=== PATIENT | female | born 1950 | race Caucasian/White ===

== ENCOUNTER 2016-11-26 19:44 | Inpatient (IN) | payer MEDICARE ==
--- NOTE | ~2016-11-26 | HP ---
Unit #: [id number] #: [id number] Patient: VALENTIN KASPER [id number] [address] [place], [place] [address] [id number] I MR#: [id number] NAME: VALENTIN KASPER. ROOM: 05136 Age: 66 Sex: F Admission Date: 11/26/2016 : 1950 Attending Physician: Yulia Perry M.D. Referring Physician: Flip Patel M.D. Primary Care Physician: Flip Patel M.D. HISTORY AND PHYSICAL CHIEF COMPLAINT Qrkxm-kl-dopzimd respiratory failure. HISTORY OF PRESENT ILLNESS This 66-year-old female with O2-dependent COPD, remote PE, hypertension, rheumatoid arthritis and treated histoplasmosis, is admitted for respiratory failure. The patient was recently admitted to [facility] in September for influenza. She was in her usual state of health until two days ago when she felt feverish with chills, cough productive of some yellow sputum, some wheezing and increasing shortness of breath today. She presented to this emergency department where her O2 saturation was 90% on her usual 6 liters of oxygen. She, therefore, was placed on BiPAP with improved and given 125 mg of Solu-Medrol for wheezing noted by the ER physician. Chest x-ray performed shows bilateral patchy opacities likely diffuse lung disease but difficult to exclude an acute component. At this time, patient is breathing easier on BiPAP. PAST MEDICAL HISTORY 1. COPD on 6 liters of oxygen. 2. Histoplasmosis treated in the past with a right upper lobe nodule. 3. GERD. 4. DJD. 5. Remote PE in 1998 following a left hip replacement. 6. Rheumatoid arthritis which caused a pericardial effusion requiring pericardial window. 7. Hyperlipidemia. 8. Hypertension. 9. Negative stress test in the past. 10. Recent admission to [facility] for influenza. 11. Possible history of congestive heart failure. 12. Right shoulder surgery. 13. SARIKA and BSO. ALLERGIES No known drug allergies. HOME MEDICATIONS 1. Mucomyst b.i.d. in nebulizer. 2. Ventolin inhaler p.r.n. 3. DuoNeb q.i.d. 4. Fosamax 70 mg each week. 5. Lipitor 40 mg daily. Unit #: [id number] #: [id number] Patient: VALENTIN KASPER 6. Symbicort 80/4.5 two puffs b.i.d. 7. Os-Mani 600 mg b.i.d. 8. Lasix 40 mg b.i.d. 9. Plaquenil 200 mg daily. 10. Arava 20 mg daily. 11. Metoprolol 25 mg b.i.d. 12. [place]-3 1000 mg daily. 13. Protonix 40 mg daily. 14. Potassium 10 mEq b.i.d. 15. Azulfidine 500 mg h.s. 16. Trazodone 50 mg h.s. SOCIAL HISTORY The patient lives alone. She stopped smoking several years ago. Does not drink alcohol. FAMILY HISTORY CAD and valvular heart disease. REVIEW OF SYSTEMS Somewhat difficult to obtain as a BiPAP is in place. PHYSICAL EXAMINATION VITAL SIGNS: Temperature 98.5, pulse 122, respirations 23, blood pressure 136/76, O2 saturation 90% on 6 liters of oxygen but currently is 97% on FiO2 of 50%. GENERAL: Obese, 66-year-old female currently in no acute distress on BiPAP. HEENT: Eyes PERRLA. Extraocular muscles are intact. Pharynx benign. NECK: Supple without adenopathy or thyromegaly. CHEST: Diminished breath sounds bilaterally. HEART: Slightly tachy S1, S2 without murmur. ABDOMEN: Bowel sounds are present. No hepatosplenomegaly, tenderness or masses. EXTREMITIES: With mild edema, left more so than the right. NEUROLOGIC: Awake, alert, oriented. Cranial nerves are intact. Equal strength throughout. DIAGNOSTIC STUDIES LABORATORY: Hematocrit 39, normal white count and platelet count. SMA-12 glucose 115, potassium 2.9. BNP 112. Lactic acid normal. ABG pH 7.44, pCO2 34, pO2 190 on BiPAP, 12/6, back rate 18, FiO2 60%. Urinalysis 1+ protein, 2+ bacteria but no significant wbc's or rbc's. IMAGING: Chest x-ray with old granulomatous disease, bilateral patchy opacities, likely diffuse lung disease with no definite acute disease but difficult to exclude acute disease as well. CARDIOVASCULAR: EKG sinus tachycardia rate 120. ASSESSMENT 1. Dmemu-ba-wlrgrjv hypoxic respiratory failure. Patient does have underlying COPD along with rheumatoid arthritis. She may have a bronchitis, did present with wheezes and a cough. 2. Hypokalemia. 3. Chronic obstructive pulmonary disease on 6 liters of oxygen. 4. History of treated histoplasmosis. 5. Remote pulmonary embolism following surgery in 1998. Unit #: [id number] #: [id number] Patient: VALENTIN KASPER 6. Hyperlipidemia. 7. Essential hypertension. 8. Rheumatoid arthritis. 9. Status post pericardial window. 10. Recent hospitalization at [facility] for influenza. PLAN 1. Steroids, bronchodilators, antibiotics. 2. CTA of the chest. 3. Recent records. 4. Replace potassium and check magnesium. 5. DVT prophylaxis. 6. Pulmonary consultation. Patient is followed by Dr. Mart. 7. Florastor. Dictated by Yulia Perry M.D. AML/cs TD: 11/26/2016 23:26 JOB #: [id number] HISTORY AND PHYSICAL Page 1 of 1 X Yulia Perry MD X HISTORY AND PHYSICAL
--- NOTE | ~2016-11-26 | CR72 ---
[facility] A Service of [facility] & [facility] RADIOLOGY TEXT RESULTS PATIENT: VALENTIN KASPER LOCATION: [address] : [birth year] UNIT #: [id number] AGE: [address]: Keke Mercedes MD SEX: F ORDER DR: [id number] [facility] [address] [facility]. [place], [place] [address] [id number] I MR#: [id number] Acc #: [id number] NAME: VALENTIN KASPER : 1950 SEX: F STUDY DATE/TIME: 12/02/2016 6:04 UNIT: [facility] ROOM: [facility] STUDY DESCRIPTION: CR Chest Single View Portable Attending Physician: Keke Mercedes M.D. Referring Physician: Flip Patel M.D. Ordering Physician: Dimitrios Underwood M.D. Primary Care Physician: Flip Patel M.D. MEDICAL IMAGING REPORT This report is preliminary unless electronic signature is present EXAM Portable chest 1-view, 12/02/2016 COMPARISON 12/01/2016 HISTORY Respiratory failure, pneumonia. Symptoms for 6 days. FINDINGS Further improvement in the right lung with diminishing interstitial infiltrate. There is however increased interstitial prominence in the left mid and lower lung with left side volume loss when compared to 12/01. There is no pneumothorax. ET remains in place, tip 4.0-5.0 cm above the mac. Right arm PICC line and Dobbhoff type feeding tube remain in place as well. Dictated by... Kishan Banuelos M.D. THIS IS AN ELECTRONICALLY VERIFIED REPORT Kishan Banuelos M.D. at 12/02/2016 3:51 PM HAL/merlene TD: 12/02/2016 09:03 JOB #: [id number] MEDICAL IMAGING REPORT Page 1 of 1 COPY
--- NOTE | ~2016-11-26 | FU ---
[facility] Nutrition Therapy DATE: 12/05/16 Patient: VALENTIN KASPER Physician: ARCENIO Address: [address] [facility] Room/Bed: [address], Zip: [place] [address] Admit Date: 11/26/16 Date of : [birth year] Height: 5 3 Weight: 186 84.5 NUTRITION MONITORING/FOLLOW-UP: Reason: PT SEEN FOR FOLLOW-UP/ENTERAL NUTRITION SUPPORT DX: ACUTE ON CHRONIC RESP FAILURE, PNA, FEVER Anthropometrics: 5'3", WT: 186# (85 KG), BMI: 32.9 -ADMIT WEIGHT: 200# Labs: GLU: 158, BUN: 29, CREAT: 0.4 Meds: NACL, PROTONIX, NOVOLOG, LIPITOR, OS-ANTONI 500+D, FUROSEMIDE, FISH OIL, LAXATIVE, ZOFRAN, SOLU-MEDROL I&O's: 3162/2700 Skin: BILATERAL HANDS 1+ EDEMA; BILATERAL FEET 1+ EDEMA Estimated Nutrition Needs: 7876-8574 KCAL 90-109 G PRO Assessment: CHART REVIEWED AND EVENTS NOTED. PT SEEN FOR FOLLOW-UP. PT EXTUBATED REPORTS APPETITE SLOWLY IMPROVING. FAMILY REPORTS PT CONSUMES ~50% OF MEALS, NO C/O N/V BUT NOTES SOME DIARRHEA. OF NOTE, TECHNICAL SALES ASSOCIATE FOLLOWING AND DEEMS PT APPROPRIATE FOR DIET ADVANCEMENT TO MECHANICAL SOFT + NDD2 + NECTAR THICK LIQUIDS. PT ALSO RECEIVING EN OF JEVITY 1.5 @ 55 ML/HR. PER RN AND CHART, PT TOLERATING EN, NOTING NO ISSUES. PER PUMP HISTORY, PT RECEIVING ~94% ESTIMATED NUTRIENT NEEDS PAST [address] ENCOURAGED SLOW GRADUAL PO INTAKE + SUPPLEMENT INTAKE, PT AGREED TO ENSURE PUDDING ONCE DAILY W/LUNCH. RD WILL ORDER. PT AND FAMILY REPORTED NO DIET QUESTIONS AT THIS TIME. RD TO CONTINUE TO FOLLOW. Dx: INADEQUATE ORAL INTAKE R/T DX, CURRENT CLINICAL CONDITION AEB PT INTUBATED AND SEDATED, ENTERAL NUTRITION IN PLACE.-RESOLOVED NEW DX: DECREASED NUTRIENT INTAKE R/T DECREASED APPETITE AEB PT REPORT ABOVE, TECHNICAL SALES ASSOCIATE FOLLOWING. Intervention: 1. DIET PER TECHNICAL SALES ASSOCIATE (MECHANICAL SOFT + NDD2 + NECTAR THICK LIQUID) 2. ENTERAL NUTRITION SUPPORT 3. ENSURE PUDDING ONCE DAILY Monitoring, Evaluation and Goals: GOALS MET 1. ENTERAL NUTRITION; PROVIDE ~80-100% ESTIMATED NUTRIENT NEEDS 2. ORAL INTAKE; ADVANCE DIET AND CONSUME >50% OF MEALS W/NO C/O N/V/D 3. LABS; WNL [facility] Nutrition Therapy DATE: 12/05/16 Patient: VALENTIN KASPER Physician: ARCENIO Address: [address] [place] [address] Room/Bed: [address], Zip: [place] [address] Admit Date: 11/26/16 Date of : [birth year] Height: 5 3 Weight: 186 84.5 4. GI; PROMOTE REGULAR GI FUNCTION MONITOR: -PO INTAKE/APPETITE -TF RATE/RESIDUALS/WEAN? -LABS Recommendations: 1. ORDER ASHLI ENSURE PUDDING BID W/MEALS 2. CONTINUE TO ENCOURAGE SLOW GRADUAL PO INTAKE 3. CONTINUE ENTERAL NUTRITION SUPPORT OF JEVITY 1.5 @ 55 ML/HR + SUGAR-FREE PROSTAT ONCE DAILY, IF PO INTAKE <50% -PROVIDES 2080 KCAL, 99 G PRO, 1003 ML FREE H20 RECOMMEND TO D/C ENTERAL NUTRITION IF PT CONSUMES >50% OF MEALS RD WILL F/U PER PROTOCOL PT IS MODERATELY COMPROMISED Respectfully, SAMIR FERREIRA MS, RD, LD Food and Nutritional Services [facility] cc: client file
--- NOTE | ~2016-11-26 | CT16 ---
[facility] A Service of [facility] & [facility] RADIOLOGY TEXT RESULTS PATIENT: VALENTIN KASPER LOCATION: [address] : [birth year] UNIT #: [id number] AGE: [address]: Keke Mercedes MD SEX: F ORDER DR: [id number] [facility] [address] [place], [place] [address] [id number] I MR#: [id number] Acc #: [id number] NAME: VALENTIN KASPER : 1950 SEX: F STUDY DATE/TIME: 11/27/2016 02:08 UNIT: [facility] ROOM: 26480 STUDY DESCRIPTION: CT Angio Chest for PE Attending Physician: Yulia Perry M.D. Referring Physician: Flip Patel M.D. Ordering Physician: uYlia Perry M.D. Primary Care Physician: Flip Patel M.D. MEDICAL IMAGING REPORT This report is preliminary unless electronic signature is present EXAM Chest CTA, 11/27/2016 at 0208 hours. INDICATION Acute on chronic respiratory failure. Shortness of air and chest pain today. History of COPD and uterine cancer. TECHNIQUE Axial images were obtained through the chest following IV contrast administration. Comparison made with 08/01/2015. This CT exam was performed with one or more of the following radiation dose reduction techniques: automatic exposure control, adjustment of mA and/or kV according to patient size, and iterative reconstruction. FINDINGS Bolus timing is poor. There is no evidence of central pulmonary embolism. The more peripheral pulmonary branches are poorly evaluated. There is no aortic dissection. There is no pleural or pericardial effusion. Scattered nonpathologically enlarged mediastinal nodes are stable from prior and presumed benign. Large calcified fibrotic mass in the right upper lobe is unchanged. There is severe pulmonary emphysema. There is new infiltrate in the right middle lobe compatible with pneumonia. There is some mild atelectasis in the left lower lobe. There is atherosclerotic disease and extensive coronary artery disease. Continuation through the upper abdomen is unremarkable. IMPRESSION 1. The exam is extremely limited due to poor bolus timing. No central pulmonary embolism is seen. The hdm-cx-dggnnm pulmonary arterial branches are poorly evaluated. 2. No aortic dissection. [facility]. [facility] A Service of [facility] & [facility] RADIOLOGY TEXT RESULTS PATIENT: VALENTIN KASPER LOCATION: [address] : [birth year] UNIT #: [id number] AGE: [address]: Keke Mercedes MD SEX: F ORDER DR: 3. Severe emphysema with scattered areas of fibrosis, particularly in the right upper lobe. These are all stable. 4. New right middle lobe infiltrate compatible with pneumonia. 5. Atherosclerotic disease and coronary artery disease. Dictated by... Richard Perdomo Jr., M.D. THIS IS AN ELECTRONICALLY VERIFIED REPORT Richard Perdomo Jr., M.D. at 11/27/2016 10:18 PM GONSALO/rudy TD: 11/27/2016 03:26 JOB #: [id number] MEDICAL IMAGING REPORT Page 1 of 1 COPY
--- NOTE | ~2016-11-26 | CR72 ---
[facility] A Service of [facility] & [facility] RADIOLOGY TEXT RESULTS PATIENT: VALENTIN KASPER LOCATION: [address] : [birth year] UNIT #: [id number] AGE: [address]: Keke Mercedes MD SEX: F ORDER DR: [id number] [facility] [address] [place], [place] [address] [id number] I MR#: [id number] Acc #: [id number] NAME: VALENTIN KASPER : 1950 SEX: F STUDY DATE/TIME: 12/03/2016 4:21 UNIT: [facility] ROOM: [facility] STUDY DESCRIPTION: CR Chest Single View Portable Attending Physician: Keke Mercedes M.D. Referring Physician: Flip Patel M.D. Ordering Physician: Dimitrios Underwood M.D. Primary Care Physician: Flip Patel M.D. MEDICAL IMAGING REPORT This report is preliminary unless electronic signature is present EXAM Portable chest 12/03/2016 INDICATION Respiratory failure. COMPARISON 12/02/2016. FINDINGS This portable view of the chest is unchanged from yesterday's study. There appears to be an irregular mass in the right upper lobe measuring about 3.5 cm in diameter. There is mild interstitial prominence within the lungs and the heart size is normal. The Dobbhoff tube is in good position. Based on the chest CT 11/27/2016, the mass appears to represent a calcified lesion. Dictated by... Yony Dowell M.D. THIS IS AN ELECTRONICALLY VERIFIED REPORT Yony Dowell M.D. at 12/03/2016 2:21 PM ADARSH/jenn TD: 12/03/2016 06:51 JOB #: [id number] MEDICAL IMAGING REPORT Page 1 of 1 COPY
--- NOTE | ~2016-11-26 | CR72 ---
[facility] A Service of [facility] & [facility] RADIOLOGY TEXT RESULTS PATIENT: VLAENTIN KASPER LOCATION: [address] : [birth year] UNIT #: [id number] AGE: [address]: Keke Mercedes MD SEX: F ORDER DR: [id number] [facility] [address] [facility] [place], [place] [address] [id number] I MR#: [id number] Acc #: [id number] NAME: VALENTIN KASPER. : 1950 SEX: F STUDY DATE/TIME: 11/27/2016 10:10 UNIT: [facility] ROOM: [facility] STUDY DESCRIPTION: CR Chest Single View Portable Attending Physician: Keke Mercedes M.D. Referring Physician: Flip Patel M.D. Ordering Physician: Felice Underwood, Phd Primary Care Physician: Flip Patel M.D. MEDICAL IMAGING REPORT This report is preliminary unless electronic signature is present EXAM Frontal chest 11/27/2016 INDICATIONS 66-year-old intubated patient. ET tube placement, cough, fever, short of air, hemoptysis symptoms began today. History of uterine malignancy. TECHNIQUE Frontal chest was performed. Correlation is made with CT 11/27/2016 and chest x-ray 11/26/2016 FINDINGS ET tube tip in good position above the mac. Enteric tube tip below the diaphragm but not in the field of view. Cardiac silhouette is stable. The lungs demonstrate advanced emphysematous change. There is consolidation in the midlung zone on the right better demonstrated on prior CT but most characteristic of pneumonia. Partially calcified mass in the upper lung zone on the right unchanged. No pneumothorax or new significant effusion. There is some atelectasis in the left lung base. There are increasing opacities in the lower lung zone on the right suspicious for developing or worsening pneumonia on the right. These appear new compared to the prior chest x-ray. IMPRESSION 1. Tubes and lines in satisfactory position to the extent visualized. No pneumothorax. 2. Middle lung zone pneumonia on the right better demonstrated on prior CT. New infiltrates in the lower lungs on the right suspicious for progression of pneumonia. New compared to prior chest x-ray performed yesterday. 3. No new effusion or evidence of pneumothorax. Calcified mass. Upper lungs on the right unchanged. 4. There is probable atelectasis in the left lung base. [facility]. [facility] A Service of [facility] RADIOLOGY TEXT RESULTS PATIENT: VALENTIN KASPER LOCATION: [place] [address] : [birth year] UNIT #: [id number] AGE: [address]: Keke Mercedes MD SEX: F ORDER DR: Dictated by... Kennedy Cheng M.D. THIS IS AN ELECTRONICALLY VERIFIED REPORT Kennedy Cheng M.D. at 11/27/2016 5:12 PM Sage TD: 11/27/2016 10:48 JOB #: [id number] MEDICAL IMAGING REPORT Page 1 of 1 COPY
--- NOTE | ~2016-11-26 | A ---
[facility] Nutrition Therapy DATE: 11/28/16 Patient: VALENTIN KASPER Physician: ARCENIO Address: [address] [facility] Room/Bed: [address], Zip: [place] [address] Admit Date: 11/26/16 Date of : [birth year] Height: 5 3 Weight: 185 84 NUTRITIONAL ASSESSMENT: REASON: ENTERAL NUTRITION SUPPORT ASSESSMENT, ALSO PT INTUBATED PT IS 66 Y.O. FEMALE ADMITTED FOR ACUTE ON CHRONIC RESP FAILURE, PNA, CP, FEVER PMH: SEVERE COPD, FIBROSIS, HTN, HLD, ARTHRITIS, ZOYA, REMOTE PE, ?CHF, HX OF UTERINE CANCER Anthropometrics: 5'3", WT: 200# (BEDSIDE) (91 KG), BMI: 35.4, 174%IBW -WEIGHTS HAVE RANGED 174-220# SINCE ADMIT Labs: GLU: 186, BUN: 8, ALB: 3.1, K+:3.3 Meds: PROPOFOL, FENTANYL, PROTONIX, LIPITOR, OS-ANTONI 500+D, VERSED, FUROSEMIDE, FISH OIL, NOVOLOG, SOLU-MEDROL, ZOFRAN, LAXATIVE, KCL I/O & Bowel function: 4419/1706 Skin Integrity: NO KNOWN SKIN ISSUES EDEMA: BILATERAL HANDS 1+ EDEMA; BILATERAL FEET 1+ EDEMA Estimated Nutrition Needs: 7173-5200 KCAL (18-22 KCAL/KG BW) 90-109 G PRO (1.0-1.2 G PRO/KG BW) FLUID CONSISTENT W/KCAL NEEDS OR MANAGE PER MD Assessment: CHART REVIEWED AND EVENTS NOTED. PT SEEN FOR ENTERAL NUTRITION IN PLACE. PT INTUBATED AND SEDATED W/PROPOFOL (RATE OF 28.4 ML/HR PROVIDING ~750 KCAL FROM LIPIDS) 2' DX, RECEIVING ALTERNATIVE NUTRITION SUPPORT OF JEVITY 1.5 @ 35 ML/HR (PLANS TO ADVANCE TO 45 ML/HR PER MD NOTES) VIA DHT. FAMILY IN ROOM REPORT PT NOTED TO HAVE DECREASED APPETITE AT HOME PAST FEW DAYS. FAMILY REPORTED NO DIET QUESTIONS AT THIS TIME. OF NOTE, PT WAS ADMITTED TO [facility] A FEW MONTHS AGO. RD TO FOLLOW. SEE RECOMMENDATIONS BELOW. Dx: INADEQUATE ORAL INTAKE R/T DX, CURRENT CONDITION AEB PT INTUBATED AND SEDATED, EN IN PLACE. Intervention: 1. ENTERAL NUTRITION Monitoring, Evaluation and Goals: 1. ENTERAL NUTRITION; PROVIDE ~80-100% ESTIMATED NUTRIENT NEEDS 2. ORAL INTAKE; ADVANCE DIET PER TRANSFER TABLE OPERATOR HELPER/TOLERATE W/NO C/O N/V/D (PO>50%) 3. LABS; WNL: K+, GLU [facility] Nutrition Therapy DATE: 11/28/16 Patient: VALENTIN KASPER Physician: ARCENIO Address: [address] [place] [address] Room/Bed: [address], Zip: [place] [address] Admit Date: 11/26/16 Date of : [birth year] Height: 5 3 Weight: 185 84 4. WEIGHTS; PROMOTE GRADUAL WEIGHT LOSS MONITOR: -TF RATE/RESIDUALS -WEIGHTS -SEDATION RATE -LABS Recommendations: 1. RECOMMEND TO REPLACE K+ PRIOR TO EN ADMINISTRATION. CHECK K+ AT NEXT LAB DRAW 2. IF PT REMAINS INTUBATED AND RECEIVING PROPOFOL, RECOMMEND TO ADD SUGAR-FREE PROSTAT TID TO CURRENT ENTERAL NUTRITION SUPPORT OF JEVITY 1.5 @ 35 ML/HR -TOTAL PROVIDES 2310 KCAL, 99 G PRO, 638 ML FREE H20 ADD FREE H20 FLUSHES PER MD 3. ONCE PROPOFOL D/C'D, RECOMMEND TO ADVANCE CURRENT ENTERAL NUTRITION SUPPORT OF JEVITY 1.5 10 ML q 8 HOURS TO GOAL RATE OF 55 ML/HR + SUGAR-FREE PROSTAT ONCE DAILY -PROVIDES 2080 KCAL, 99 G PRO, 1003 ML FREE H20 ADD FREE H20 FLUSHES PER MD 4. ONCE MEDICALLY FEASIBLE AND PT EXTUBATED, ADVANCE DIET PER TRANSFER TABLE OPERATOR HELPER + HH 2' PMH RD WILL F/U PER PROTOCOL PT IS SEVERELY COMPROMISED Respectfully, SAMIR FERREIRA MS, RD, LD Food and Nutritional Services [facility] cc: client file
--- NOTE | ~2016-11-26 | FU ---
[facility] Nutrition Therapy DATE: 12/02/16 Patient: VALENTIN KASPER Physician: ARCENIO Address: [address] [place] [address] Room/Bed: [address], Zip: [place] [address] Admit Date: 11/26/16 Date of : [birth year] Height: 5 3 Weight: 194 88 NUTRITION MONITORING/FOLLOW-UP: Reason: PT SEEN FOR FOLLOW-UP/ENTERAL NUTRITION SUPPORT DX: ACUTE ON CHRONIC RESP FAILURE, PNA, FEVER Anthropometrics: 5'3", WT: 194# (88 KG), BMI: 34.4 -ADMIT WEIGHT: 200# Labs: GLU: 162, BUN: 29, CA+:8.1, ALB: 2.6 Meds: NACL, PROTONIX, PROPOFOL (OFF), NOVOLOG, LIPITOR, OS-ANTONI 500+D, FUROSEMIDE, FISH OIL, LAXATIVE, ZOFRAN, SOLU-MEDROL, VERSED I&O's: 2540/2800 Skin: NO KNOWN SKIN ISSUES EDEMA: BILATERAL HANDS 1+ EDEMA; BILATERAL FEET 1+ EDEMA Estimated Nutrition Needs: 1112-0334 KCAL 90-109 G PRO Assessment: CHART REVIEWED AND EVENTS NOTED. PT SEEN FOR ENTERAL NUTRITION SUPPORT FOLLOW-UP. PT CONTINUES TO BE INTUBATED AND SEDATED (NO PROPOFOL), WEAN PROTOCOL IN PLACE THIS AM. PT RECEIVING ENTERAL NUTRITION SUPPORT OF JEVITY 1.5 @ 35 ML/HR + SUGAR-FREE PROSTAT TID. PER RN AND CHART, PT TOLERATING EN, NOTING NO ISSUES. FAMILY IN ROOM REPORTED NO DIET QUESTIONS AT THIS TIME. RD TO CONTINUE TO FOLLOW. SEE NEW RECOMMENDATIONS BELOW. -EN PROVIDES 1560 KCAL, 99 G PRO, 638 ML FREE H20 Dx: INADEQUATE ORAL INTAKE R/T DX, CURRENT CONDITION AEB PT INTUBATED AND SEDATED, EN IN PLACE.-ACTIVE Intervention: 1. ENTERAL NUTRITION SUPPORT Monitoring, Evaluation and Goals: GOALS NOT MET 1. ENTERAL NUTRITION; PROVIDE ~80-100% ESTIMATED NUTRIENT NEEDS AT GOAL 2. ORAL INTAKE; ADVANCE DIET PER DRAGLINE OILER W/NO SIGNS OF DYSPHAGIA (PO>50%) 3. LABS; WNL 4. GI; PROMOTE REGULAR GI FUNCTION MONITOR: -WEIGHTS -EXTUBATION? [facility] Nutrition Therapy DATE: 12/02/16 Patient: VALENTIN KASPER Physician: ARCENIO Address: [address] [place] [address] Room/Bed: [address], Zip: [place] [address] Admit Date: 11/26/16 Date of : [birth year] Height: 5 3 Weight: 194 88 -DRAGLINE OILER EVAL -TF RATE/RESIDUALS -LABS Recommendations: 1. ONCE MEDICALLY FEASIBLE AND PT EXTUBATED, ADVANCE DIET PER DRAGLINE OILER + DIET 2. IF PT REMAINS INTUBATED, RECOMMEND TO ADVANCE CURRENT ENTERAL NUTRITION OF JEVITY 1.5 TO GOAL RATE OF 55 ML/HR + SUGAR-FREE PROSTAT ONCE DAILY -PROVIDES 2080 KCAL, 99 G PRO, 1003 ML FREE H20 CONTINUE FREE H20 FLUSHES PER MD RD WILL F/U PER PROTOCOL PT IS MODERATELY COMPROMISED Respectfully, SAMIR FERREIRA MS, RD, LD Food and Nutritional Services [facility] cc: client file
--- NOTE | ~2016-11-26 | CO ---
Unit #: [id number] #: [id number] Patient: VALENTIN MODI [id number] [address] [place], [place] [address] [id number] I MR#: [id number] NAME: VALENTIN MODI. ROOM: [facility] Age: 66 Sex: F Admission Date: 11/26/2016 : 1950 Attending Physician: Keke Mercedes M.D. Primary Care Physician: Flip Patel M.D. Consultation Date: 11/27/2016 CONSULTATION REPORT REASON FOR CONSULTATION Respiratory distress, COPD. HISTORY OF PRESENT ILLNESS A 66-year-old female followed by Dr. Mart in the office, who has COPD and chronic respiratory failure, requiring 6 L of oxygen at home. She apparently was at [facility] for influenza. She required rehabilitation at [facility] and returned home late October. She has had increasing shortness of breath for approximately 2 days. She came to the emergency room, CT angiogram for negative PE, but possible pneumonia. She was treated in usual fashion including mask ventilation, but has failed. In the intensive care unit, she could not speak virtually any words much less full sentences. She was tachycardic, tachypneic, and obviously in need of intubation. I discussed this with the patient and daughter and proceeded. She could not really add further to the history. PAST MEDICAL HISTORY Remarkable for recent hospitalization for influenza at 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 ALLERGIES No known medical allergies. MEDICATIONS At home, according to the EHR; Ventolin, DuoNeb, Fosamax, Lipitor, Symbicort, Lasix, Plaquenil, Arava, metoprolol, Protonix, potassium, Azulfidine, trazodone. SOCIAL HISTORY Stopped smoking a few years ago, but used to smoke. Apparently does not drink. FAMILY HISTORY Coronary artery disease. REVIEW OF SYSTEMS Unobtainable. PHYSICAL EXAMINATION Unit #: [id number] #: [id number] Patient: VALENTIN MODI GENERAL: Reveals the patient, who as above was in marked respiratory distress, it looks much better, intubated. VITAL SIGNS: Afebrile, pulse 108, respiratory rate is 20 to 30, blood pressure is 141/62, 5 feet, 371 pounds. BMI is 30. HEENT: Pupils equal, round, and reactive to light. Sclerae anicteric. Head, atraumatic. NECK: Supple. No supraclavicular or cervical adenopathy appreciated. LUNGS: Tight expiratory wheezes with limited airflow, no definite consolidation. CARDIAC: Reveals regular rate and rhythm. No pathologic murmur, rub, or gallop. ABDOMEN: Soft and nontender. No hepatomegaly or rebound. EXTREMITIES: Reveal no clubbing, cyanosis, or edema. No calf tenderness. SKIN: Has good capillary blush. No rash or diaphoresis. DIAGNOSTIC STUDIES LABORATORY RESULTS: Initial arterial blood gas; pH is 7.44, pCO2 of 34, PO2 of 190 that apparently was on BiPAP last night. BUN is 8, creatinine is 0.7, potassium is 3.3. BNP 112. Lactic acid 1.3. INR normal. Cardiac enzymes, normal. White blood cell count 6.8, hemoglobin 11.7, platelet count 141. Blood cultures performed and are pending. Urine is pending. IMAGING STUDIES: CT angiogram, no definite PE, marked bullous emphysema, large calcified area in right upper lobe. There was much scarring, some traction bronchiectasis. There may be a new right middle lobe infiltrate. CARDIOVASCULAR STUDIES: EKG; sinus tachycardia, nonspecific ST-T wave changes. IMPRESSION 1. Acute on chronic respiratory failure, requiring intubation. 2. Severe emphysema. 3. Possible right middle lobe pneumonia. 4. Chronic respiratory failure, on 6 L. 5. Rheumatoid arthritis, status post pericardial window. 6. Remote histoplasmosis. 7. Remote pulmonary embolism, provoked. 8. A variety of problems listed above. PLAN 1. The patient was intubated without difficulty. 2. #8 ET tube orally on first pass. Treatment of her COPD with steroids, antibiotics for possible pneumonia including coverage for MRSA. I have discussed with the patient and family possible duration of mechanical ventilation. Thank you very much for allowing me to participate in the care of Ms. Modi. Dictated by... Dimitrios Underwood M.D. OWEN/shirin TD: 11/28/2016 02:33 JOB #: [id number] Unit #: [id number] #: [id number] Patient: VALENTIN MODI CC: Damon Mart M.D. CONSULTATION REPORT Page 1 of 1 X Dimitrios Underwood MD X CONSULTATION REPORT
--- NOTE | ~2016-11-26 | CT71 ---
[facility] A Service [facility] RADIOLOGY TEXT RESULTS PATIENT: VALENTIN KASPER LOCATION: [address] : [birth year] UNIT #: [id number] AGE: [address]: Keke Mercedes MD SEX: F ORDER DR: [id number] [facility] [address] [facility]. [place], [place] [address] [id number] I MR#: [id number] Acc #: [id number] NAME: VALENTIN KASPER : 1950 SEX: F STUDY DATE/TIME: 12/03/2016 12:50 UNIT: [id number] ROOM: [facility] STUDY DESCRIPTION: CT Head Wo Contrast Attending Physician: Keke Mercedes M.D. Referring Physician: Flip Patel M.D. Ordering Physician: Keke Mercedes M.D. Primary Care Physician: Flip Patel M.D. MEDICAL IMAGING REPORT This report is preliminary unless electronic signature is present EXAM Head CT without contrast HISTORY Weakness in the right arm, onset today. TECHNIQUE Axial images were obtained without contrast. This CT exam was performed with one or more of the following radiation dose reduction techniques: automatic exposure control, adjustment of mA and/or kV according to patient size, and iterative reconstruction. FINDINGS Moderate atrophy is seen. There are chronic ischemic changes seen around the ventricles bilaterally. There is no evidence of mass lesion, hemorrhage or edema. No midline shift is seen. Extraaxial structures are unremarkable. IMPRESSION Atrophy with moderate chronic ischemic changes around the ventricles. No acute findings. Dictated by... Richard York M.D. THIS IS AN ELECTRONICALLY VERIFIED REPORT Richard York M.D. at 12/04/2016 2:15 PM ELVIN/orin TD: 12/03/2016 13:33 JOB #: [id number] [facility] A Service [facility] RADIOLOGY TEXT RESULTS PATIENT: VALENTIN KASPER LOCATION: [address] : [birth year] UNIT #: [id number] AGE: [address]: Keke Mercedes MD SEX: F ORDER DR: MEDICAL IMAGING REPORT Page 1 of 1 COPY
--- NOTE | ~2016-11-26 | HP ---
Unit #: [id number] #: [id number] Patient: VALENTIN KASPER [id number] [address] [address] [id number] I MR#: [id number] NAME: VALENTIN KASPER ROOM: 45411 Age: 66 Sex: F Admission Date: 11/26/2016 : 1950 Attending Physician: Yulia Perry M.D. Referring Physician: Flip Patel M.D. Primary Care Physician: Flip Patel M.D. HISTORY AND PHYSICAL ADDENDUM CTA showed severe COPD, some fibrosis, and right middle lobe pneumonia. Will treat for hospital-acquired pneumonia given recent admission to [facility] a couple of months ago. Critical care time spent evaluating this patient was 40 minutes. Dictated by Damir Anderson/carlie TD: 11/27/2016 06:46 JOB #: [id number] HISTORY AND PHYSICAL Page 1 of 1 X Yulia Perry MD HISTORY AND PHYSICAL
--- NOTE | ~2016-11-26 | CR72 ---
[facility] A Service of [facility] RADIOLOGY TEXT RESULTS PATIENT: VALENTIN KASPER LOCATION: [address] : [birth year] UNIT #: [id number] AGE: [address]: Keke Mercedes MD SEX: F ORDER DR: [id number] [facility] [address] [facility] [place] [facility]. [place], [place] [address] [id number] I MR#: [id number] Acc #: [id number] NAME: VALENTIN KASPER : 1950 SEX: F STUDY DATE/TIME: 12/01/2016 5:48 UNIT: [facility] ROOM: [facility] STUDY DESCRIPTION: CR Chest Single View Portable Attending Physician: Keke Mercedes M.D. Referring Physician: Flip Patel M.D. Ordering Physician: Dimitrios Underwood M.D. Primary Care Physician: Flip Patel M.D. MEDICAL IMAGING REPORT This report is preliminary unless electronic signature is present EXAM AP portable chest 12/01/2016 HISTORY Respiratory failure. Pneumonia. Patient on ventilator. Follow up cardiopulmonary status. TECHNIQUE AP portable upright chest x-ray. FINDINGS The exam shows no change since yesterday. Endotracheal tube, right arm PICC and Dobbhoff feeding tube remain in good position. Advanced pulmonary emphysema with mild patchy bibasilar infiltrates. 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 IMPRESSION Stable portable chest radiograph, unchanged since yesterday. Support devices remain in good position. Dictated by... Domenic Cordova M.D. THIS IS AN ELECTRONICALLY VERIFIED REPORT Domenic Cordova M.D. at 12/01/2016 3:54 PM KEVIN/rupinder TD: 12/01/2016 09:37 JOB #: [id number] MEDICAL IMAGING REPORT [facility] A Service [facility] RADIOLOGY TEXT RESULTS PATIENT: VALENTIN KASPER LOCATION: [address] : [birth year] UNIT #: [id number] AGE: [address]: Keke Mercedes MD SEX: F ORDER DR: Page 1 of 1 COPY
--- NOTE | ~2016-11-26 | CR72 ---
[facility] A Service of [facility] RADIOLOGY TEXT RESULTS PATIENT: VALENTIN KASPER LOCATION: [place] [address] : [birth year] UNIT #: [id number] AGE: [address]: Keke Mercedes MD SEX: F ORDER DR: [id number] [facility] [address] [facility] [place], [place] [address] [id number] I MR#: [id number] Acc #: [id number] NAME: VALENTIN KASPER. : 1950 SEX: F STUDY DATE/TIME: 11/28/2016 05:13 UNIT: [facility] ROOM: [facility] STUDY DESCRIPTION: CR Chest Single View Portable Attending Physician: Keke Mercedes M.D. Referring Physician: Flip Patel M.D. Ordering Physician: Dimitrios Underwood M.D. Primary Care Physician: Flip Patel M.D. MEDICAL IMAGING REPORT This report is preliminary unless electronic signature is present EXAM Portable chest 11/28/2016 at 05:13 INDICATION Acute respiratory failure. FINDINGS AP portable chest is compared with 11/27/2016. Heart size stable. ET tube tip in the lower trachea. Calcified mass in the right upper lobe is unchanged. There is emphysema. Coarse bilateral infiltrates are again seen. They appear slightly improved, particularly at the right base. This would suggest some component of improving edema. No pneumothorax. Dictated by... Richard Perdomo Jr., M.D. THIS IS AN ELECTRONICALLY VERIFIED REPORT Richard Perdomo Jr., M.D. at 12/01/2016 7:24 AM GONSALO/jenn TD: 11/28/2016 09:22 JOB #: [id number] MEDICAL IMAGING REPORT Page 1 of 1 COPY
--- NOTE | ~2016-11-26 | CR63 ---
[facility] A Service of [facility] RADIOLOGY TEXT RESULTS PATIENT: VALENTIN KASPER LOCATION: [facility] 332-01 : [birth year] UNIT #: [id number] AGE: [address]: Keke Mercedes MD SEX: F ORDER DR: [id number] [place] [id number] [facility]. [place], [place] [address] [id number] I MR#: [id number] Acc #: [id number] NAME: VALENTIN KASPER : 1950 SEX: F STUDY DATE/TIME: 12/09/2016 07:44 UNIT: [address] ROOM: [facility] STUDY DESCRIPTION: CR Chest 2 View Attending Physician: Keke Mercedes M.D. Referring Physician: Flip Patel M.D. Ordering Physician: Dimitrios Underwood M.D. Primary Care Physician: Flip Patel M.D. MEDICAL IMAGING REPORT This report is preliminary unless electronic signature is present EXAM Chest 2 views 12/09/2016 0744 hours HISTORY 66-year-old with history of uterine cancer complaining of shortness of air, cough, respiratory failure, follow up pneumonia. Symptoms since 11/26/2016. COMPARISON 12/03/2016. FINDINGS Upright chest film demonstrates stable cardiomegaly and tortuous aorta. Perihilar interstitial changes are improved. There is ovoid masslike density in the right upper lung measuring 3.3 cm previously 3.6 cm. IMPRESSION Resolution of bilateral mid and lower lung interstitial change. There is ovoid masslike opacity in the right upper lobe measuring 3.4 cm previously 3.6 cm on 12/03/2016. Dictated by... Yanni Shelton M.D. THIS IS AN ELECTRONICALLY VERIFIED REPORT Yanni Shelton M.D. at 12/09/2016 7:01 PM GALLO/jenn TD: 12/09/2016 10:13 JOB #: [id number] MEDICAL IMAGING REPORT [facility] A Service of [facility] RADIOLOGY TEXT RESULTS PATIENT: VALENTIN KASPER LOCATION: [facility] 332-01 : [birth year] UNIT #: [id number] AGE: [address]: Keke Mercedes MD SEX: F ORDER DR: Page 1 of 1 COPY
--- NOTE | ~2016-11-26 | CR72 ---
[facility] A Service of [facility] RADIOLOGY TEXT RESULTS PATIENT: VALENTIN KASPER LOCATION: [place] [address] : [birth year] UNIT #: [id number] AGE: [address]: Keke Mercedes MD SEX: F ORDER DR: [id number] [facility] [address] [facility] [place], [place] [address] [id number] I MR#: [id number] Acc #: [id number] NAME: VALENTIN KASPER : 1950 SEX: F STUDY DATE/TIME: 11/30/2016 3:26 UNIT: [facility] ROOM: [facility] STUDY DESCRIPTION: CR Chest Single View Portable Attending Physician: Keke Mercedes M.D. Referring Physician: Flip Patel M.D. Ordering Physician: Dimitrios Underwood M.D. Primary Care Physician: Flip Patel M.D. MEDICAL IMAGING REPORT This report is preliminary unless electronic signature is present EXAM Portable chest INDICATIONS Follow up infiltrate and endotracheal tube. FINDINGS Today's portable chest exam is unchanged from yesterday's study, with the endotracheal tube and Dobbhoff tube and PIC catheter in good position. There is some interstitial prominence somewhat diffusely and a focal mass or suprahilar infiltrate is present on the right side. Dictated by... Yony Dowell M.D. THIS IS AN ELECTRONICALLY VERIFIED REPORT Yony Dowell M.D. at 11/30/2016 9:54 PM FEL/psc TD: 11/30/2016 19:11 JOB #: [id number] MEDICAL IMAGING REPORT Page 1 of 1 COPY
--- NOTE | ~2016-11-26 | CR72 ---
[facility] A Service of [facility] RADIOLOGY TEXT RESULTS PATIENT: VALENTIN KASPER [facility] : [birth year] UNIT #: [id number] AGE: [address]: Keke Mercedes MD SEX: F ORDER DR: [id number] [facility] [address] [facility]. [place], [place] [address] [id number] E MR#: [id number] Acc #: [id number] NAME: VALENTIN KASPER : 1950 SEX: F STUDY DATE/TIME: 11/26/2016 19:53 UNIT: [facility] ROOM: STUDY DESCRIPTION: CR Chest Single View Portable Attending Physician: Mansoor Menjivar M.D. Referring Physician: Flip Patel M.D. Ordering Physician: Mansoor Menjivar M.D. Primary Care Physician: Flip Patel M.D. MEDICAL IMAGING REPORT This report is preliminary unless electronic signature is present EXAM Portable chest HISTORY Cough, fever, shortness of air. History of histoplasmosis. Symptoms for 3 days. COMPARISON STUDIES 07/25/2015. FINDINGS Portable view of the chest demonstrates a densely calcified lesion right upper lung, may represent a granuloma or hamartoma. The parenchymal opacity seen in the mid- and lower lung zones and probably represents diffuse lung disease, possibly related to underlying and prior inflammatory or granulomas disease. No definite acute airspace disease or consolidation is identified, though given the diffuse lung disease, an acute process may be difficult to discern. No sizeable effusions. Heart, mediastinum unremarkable. No pneumothorax. Dictated by... Gracie Javed M.D. THIS IS AN ELECTRONICALLY VERIFIED REPORT Gracie Javed M.D. at 11/27/2016 2:03 PM RICKY/adriel TD: 11/26/2016 22:10 JOB #: [id number] [facility] A Service [facility] RADIOLOGY TEXT RESULTS PATIENT: VALENTIN KASPER [address] : [birth year] UNIT #: [id number] AGE: [address]: Keke Mercedes MD SEX: F ORDER DR: MEDICAL IMAGING REPORT Page 1 of 1 COPY
--- NOTE | ~2016-11-26 | DS ---
Unit #: [id number] #: [id number] Patient: VALENTIN KASPER [id number] [address] [place], [place] [address] [id number] I MR#: [id number] NAME: VALENTIN KASPER ROOM: 332 Age: 66 Sex: F Admission Date: 11/26/2016 : 1950 Discharge Date: 12/10/2016 Attending Physician: Keke Mercedes M.D. Referring Physician: Flip Patel M.D. Primary Care Physician: Flip Patel M.D. DISCHARGE SUMMARY REASON FOR ADMISSION Acute hypoxic/hypercapnic respiratory failure. HISTORY OF PRESENT ILLNESS The patient is a 66-year-old female with a history of end-stage COPD on home O2 at approximately six liters who presented with increased shortness of breath, dyspnea. She was seen and evaluated in the emergency room, initially placed on BiPAP and subsequently placed in the ICU. Consultation was placed to Dr. Underwood and associates. Unfortunately, the patient's respiratory status was fairly compromised on the initial first day and, therefore, the patient was subsequently intubated, placed on ventilator support. Through ICU course, Dr. Underwood continued to manage with IV antibiotics as well as Solu-Medrol, aerosols and ventilator support. Initial CTA also revealed findings consistent with multifocal pneumonia and recent hospital admission. Since within 90 days, the patient was diagnosed with healthcare-acquired pneumonia as well. Eventually, she was extubated, placed on high flow O2/BiPAP support. She was subsequently transferred to telemetry floor, placed on her home O2 at six liters. Secondary to prolonged hospital course as well as chronic deconditioning, Physical and Occupational Therapy Services both recommended rehab at time of discharge. The patient did complain of some upper extremity weakness as well as difficulty with moving. We performed a CT head noncontrast on 12/03/2016 which did not show any acute process. The patient was cleared by Speech Therapy Services for a routine diet. Later this afternoon, the patient will be transitioned to rehab for ongoing care. Overall, her long-term prognosis is guarded at best secondary to her severe and end-stage COPD. FINAL DISCHARGE DIAGNOSES Unit #: [id number] #: [id number] Patient: VALENTIN KASPER 1. Acute on chronic respiratory failure. 2. Acute hypoxic/hypercapnic respiratory failure. 3. Chronic obstructive pulmonary disease exacerbation. 4. Healthcare-acquired pneumonia. 5. End-stage chronic obstructive pulmonary disease on home O2 at six liters. 6. Anemia. Baseline hemoglobin between 11 to 12. 7. Profound weakness/chronic immobility syndrome. 8. Methicillin-resistant Staphylococcus aureus positive nares swab. 9. Hyperlipidemia. 10. Hypertension. 11. Prior history of rheumatoid arthritis. 12. Chronic insomnia. 13. Gastroesophageal reflux disease. FINAL DISCHARGE MEDICATIONS 1. DuoNeb aerosol solution q.6 hours scheduled with q.2 p.r.n. 2. Pulmicort nebulized solution b.i.d. 3. Perforomist 20 mcg nebulized b.i.d. 4. Prednisone 10 mg p.o. daily until 12/12/2016. 5. Tylenol 650 mg p.o. q.4-6 p.r.n. 6. Bactroban topical t.i.d. to both nares until 12/14/2016. 7. Lexapro 10 mg p.o. daily. 8. Trazodone 50 mg p.o. q.h.s. 9. Plaquenil 400 mg p.o. daily. 10. Lopressor 25 mg p.o. b.i.d. 11. Lasix 40 mg p.o. b.i.d. 12. Lipitor 40 mg p.o. q.h.s. 13. Low dose insulin sliding scale with Accu-Cheks q.a.c. and q.h.s. 14. Fosamax 70 mg p.o. every week. 15. Florastor 250 mg p.o. b.i.d. 16. Protonix 40 mg p.o. q.a.m. 17. Os-Mani 500 mg plus D p.o. b.i.d. with meals. 18. Potassium chloride 20 mEq p.o. b.i.d. 19. Sulfasalazine 500 mg p.o. q.h.s. 20. Sulfasalazine 1,000 mg p.o. q.a.m. DISCHARGE CONDITION Stable. DISCHARGE DISPOSITION To rehab. Long-term prognosis guarded. Dictated by... Keke Mercedes M.D. ISN/kirti TD: 12/10/2016 12:41 JOB #: [id number] Unit #: [id number] #: [id number] Patient: VALENTIN KASPER DISCHARGE SUMMARY Page 1 of 1 X Keke Mercedes MD X DISCHARGE SUMMARY
--- NOTE | ~2016-11-26 | CR72 ---
[facility] A Service of [facility] RADIOLOGY TEXT RESULTS PATIENT: VALENTIN KASPER LOCATION: [place] [address] : [birth year] UNIT #: [id number] AGE: [address]: Keke Mercedes MD SEX: F ORDER DR: [id number] [facility] [address] [facility] [place], [place] [address] [id number] I MR#: [id number] Acc #: [id number] NAME: VALENTIN KASPER : 1950 SEX: F STUDY DATE/TIME: 11/29/2016 5:10 UNIT: [facility] ROOM: [facility] STUDY DESCRIPTION: CR Chest Single View Portable Attending Physician: Keke Mercedes M.D. Referring Physician: Flip Patel M.D. Ordering Physician: Dimitrios Underwood M.D. Primary Care Physician: Flip Patel M.D. MEDICAL IMAGING REPORT This report is preliminary unless electronic signature is present EXAM Portable chest 11/29/2016 HISTORY Respiratory failure and shortness of air for 3 days. Comparison chest 11/28/2016. FINDINGS Frontal chest demonstrates tubes and lines in stable position. No pneumothorax. Right upper lobe pulmonary mass unchanged. Coarse bilateral interstitial opacities are unchanged. Heart size and mediastinum are stable. IMPRESSION 1. Tubes and lines are stable. No pneumothorax. 2. No change in course diffuse bilateral pulmonary interstitial opacities. Stable right upper lobe mass. Dictated by... Brandon Mayer M.D. THIS IS AN ELECTRONICALLY VERIFIED REPORT Brandon Mayer M.D. at 11/30/2016 8:11 AM CATHY/yessica TD: 11/30/2016 00:05 JOB #: [id number] MEDICAL IMAGING REPORT Page 1 of 1 COPY
--- NOTE | ~2016-11-26 | EKG ---
PATIENT: VALENTIN KASPER UNIT #: [id number] Ventricular Rate: 78 BPM Atrial Rate: 78 BPM P-R Interval: 150 ms QRS Duration: 90 ms Q-T Interval: 390 ms QTC Calculation(Bezet): 444 ms P [place]: 83 degrees Calculated R [place]: 27 degrees Calculated T [place]: 72 degrees Diagnosis Line: Normal sinus rhythm Diagnosis Line: RSR' or QR pattern in V1 suggests right Diagnosis Line: ventricular conduction delay Diagnosis Line: Nonspecific T wave abnormality Diagnosis Line: Abnormal ECG Diagnosis Line: When compared with ECG of 26-NOV-2016 18:40, Diagnosis Line: Vent. rate has decreased BY 43 BPM Diagnosis Line: Confirmed by IVETTE NGUYEN MD ([id number]) on Diagnosis Line: 12/09/2016 10:22:08 PM INTERPRETING MD: WINNIE
--- NOTE | ~2016-11-26 | EKG ---
PATIENT: VALENTIN KASPER UNIT #: [id number] Ventricular Rate: 121 BPM Atrial Rate: 121 BPM P-R Interval: 150 ms QRS Duration: 88 ms Q-T Interval: 318 ms QTC Calculation(Bezet): 451 ms P [place]: 98 degrees Calculated R [place]: 69 degrees Calculated T [place]: 86 degrees Diagnosis Line: Sinus tachycardia Diagnosis Line: Nonspecific ST and T wave abnormality Diagnosis Line: Abnormal ECG Diagnosis Line: When compared with ECG of 15-OCT-2013 00:58, Diagnosis Line: ST now depressed in Inferior leads Diagnosis Line: Confirmed by ERNESTINA HOFFMAN MD ([id number]) on 11/27/2016 Diagnosis Line: 8:05:50 PM INTERPRETING MD: DALTON WYATT
--- NOTE | ~2016-11-26 | CR6 ---
[facility] A Service of [facility] & [facility] RADIOLOGY TEXT RESULTS PATIENT: VALENTIN KASPER LOCATION: [place] [id number] : 48 UNIT #: [id number] AGE: [address]: Keke Mercedes MD SEX: F ORDER DR: [id number] [facility] [address] [place], [place] [address] [id number] MR#: [id number] Acc #: [id number] NAME: VALENTIN KASPER : 1950 SEX: F STUDY DATE/TIME: 11/27/2016 10:12 UNIT: [facility] ROOM: [facility] STUDY DESCRIPTION: CR Abdomen Portable Sng View Attending Physician: Keke Mercedes M.D. Referring Physician: Flip Patel M.D. Ordering Physician: Felice Underwood, Phd Primary Care Physician: Flip Patel M.D. MEDICAL IMAGING REPORT This report is preliminary unless electronic signature is present EXAM Portable abdomen INDICATIONS Dobbhoff tube placement; evaluate position. FINDINGS This supine view of the abdomen shows a Dobbhoff tube tip is in the body of the stomach. The bowel gas pattern is normal. Dictated by... Yony Dowell M.D. THIS IS AN ELECTRONICALLY VERIFIED REPORT Yony Dowell M.D. at 11/27/2016 3:27 PM Cady TD: 11/27/2016 11:38 JOB #: [id number] MEDICAL IMAGING REPORT Page 1 of 1 COPY
[~2016-11-26 19:44] MED LIST: ACETAMINOPHEN500 M2 PO; ALBUTEROL17 GM INH; ASPIR-TRIN325 MG PO; CIPRO PO; CRESTOR40 MG PO; HYDROCHLOROTHIA25 MG PO; KCL PO; LASIX PO; PEPCID PO; PREDNISONE PO; PREDNISONE10 MG PO; PROTONIX PO; QVAR7.3 G1 INH; ZITHROMAX500 MG PO
[2016-11-26 20:17] LABS: BASOPHIL# 0.1 X10e3 (0-0.3); BASOPHIL% 0.5 % (0-2.5); DIFF IND NO; EOSINOPHIL% 0.1 % (0.0-7.0); HEMOGLOBIN 12.6 gm/dL (12.0-16.0); LYMPHOCYTE# 1.9 X10e3 (1.0-3.5); LYMPHOCYTE% 20.2 % (17.0-45.0); MEAN CORPUSCULAR HEMOGLOBIN 27.4 PG (28-34); MEAN CORPUSCULAR HGB CONC 32.2 g/dL (30-36); MEAN PLATELET VOLUME 8.5 FL (6.5-11.5); MONOCYTE# 1.4 X10e3 (0-1.0); MONOCYTE% 14.8 % (3.0-12.0); NEUTROPHIL# 6.2 X10e3 (1.5-7.1); NEUTROPHIL% 64.4 % (40-75); PLATELET COUNT 158 X10e3 (140-420); RED BLOOD COUNT 4.58 X10e (3.90-5.30); WHITE BLOOD COUNT 9.6 X10e3 (4.0-10.5)
[2016-11-26 20:33] LABS: ARTERIAL BLD GAS O2 SATURATION 97.7 % (90.0-100.0); ARTERIAL BLOOD GAS CARBOXY HB 0.6 %sat (0.0-9.0); ARTERIAL BLOOD GAS HCO3 23.6 mmol/L; ARTERIAL BLOOD GAS PCO2 34.2 mmHg (35.0-45.0); ARTERIAL BLOOD GAS pH 7.446 (7.350-7.450)
[2016-11-26 20:35] LABS: ARTERIAL BLOOD GAS ALLEN TEST NORMAL; ARTERIAL BLOOD GAS ART SITE RIGHT RADIAL; ARTERIAL DRAW? YES
[2016-11-26 20:44] LABS: ALBUMIN SERUM 3.5 g/dL (3.5-5.0); BILIRUBIN, DIRECT 0.5 mg/dL (0.0-0.2); BILIRUBIN,INDIRECT 1.2 mg/dL (0.0-0.9); BILIRUBIN,TOTAL 1.7 mg/dL (0.2-2.0); CREATININE SERUM 0.7 mg/dL (0.6-1.4); GLOM FILT RATE Estimated 89.7 mL/min (>60); PROTEIN TOTAL SERUM 5.5 g/dL (6.0-8.3)
[2016-11-26 20:46] LABS: POTASSIUM 2.9 mmol/L (3.5-5.1)
[2016-11-27 04:46] LABS: BASOPHIL% 0.3 % (0-2.5); EOSINOPHIL% 0.1 % (0.0-7.0); HEMATOCRIT 36.9 % (35.0-45.0); HEMOGLOBIN 11.7 gm/dL (12.0-16.0); LYMPHOCYTE# 0.7 X10e3 (1.0-3.5); LYMPHOCYTE% 10.1 % (17.0-45.0); MEAN CELL VOLUME 85.1 FL (83-96); MEAN CORPUSCULAR HEMOGLOBIN 26.9 PG (28-34); MEAN CORPUSCULAR HGB CONC 31.6 g/dL (30-36); MEAN PLATELET VOLUME 8.4 FL (6.5-11.5); MONOCYTE# 0.3 X10e3 (0-1.0); MONOCYTE% 4.7 % (3.0-12.0); NEUTROPHIL# 5.8 X10e3 (1.5-7.1); NEUTROPHIL% 84.8 % (40-75); PLATELET COUNT 141 X10e3 (140-420); RED BLOOD COUNT 4.34 X10e (3.90-5.30); RED CELL DISTRIBUTION WIDTH 16.3 % (11.0-15.5); WHITE BLOOD COUNT 6.8 X10e3 (4.0-10.5)
[2016-11-27 04:47] LABS: DIFF IND NO
[2016-11-27 05:02] LABS: INR 1.1; PARTIAL THROMBOPLASTIN TIME 31.7 SECONDS (23.5-31.3); PROTHROMBIN TIME (PATIENT) 11.3 SECONDS (9.6-11.5)
[2016-11-27 05:17] LABS: ALBUMIN SERUM 3.1 g/dL (3.5-5.0); BILIRUBIN,TOTAL 1.3 mg/dL (0.2-2.0); BUN/CREATININE RATIO 11.42; CALCIUM SERUM 8.7 mg/dL (8.4-10.2); CREATININE SERUM 0.7 mg/dL (0.6-1.4); GLOM FILT RATE Estimated 89.7 mL/min (>60); POTASSIUM 3.3 mmol/L (3.5-5.1); PROTEIN TOTAL SERUM 5.4 g/dL (6.0-8.3)
[2016-11-27 11:18] LABS: ARTERIAL BLD GAS O2 SATURATION 95.8 % (90.0-100.0); ARTERIAL BLOOD GAS CARBOXY HB 0.3 %sat (0.0-9.0); ARTERIAL BLOOD GAS HCO3 22.2 mmol/L; ARTERIAL BLOOD GAS MET HB 0.9 %sat (0.0-2.0); ARTERIAL BLOOD GAS PCO2 38.3 mmHg (35.0-45.0); ARTERIAL BLOOD GAS pH 7.371 (7.350-7.450)
[2016-11-27 11:19] LABS: ARTERIAL BLOOD GAS ART SITE RIGHT RADIAL; ARTERIAL BLOOD GAS DELIVERY VENT; ARTERIAL BLOOD GAS VENT MODE AC; ARTERIAL DRAW? YES
[2016-11-27] MEDS ORDERED: K-DUR20 ME1 PO (13:11)
[2016-11-27] MEDS ORDERED: PLAQUENIL200 MG PO (13:14)
[2016-11-27] MEDS ORDERED: SYMBICORT80 INH (13:16)
[2016-11-27] MEDS ORDERED: LIPITOR40 MG PO (13:23)
[2016-11-27] MEDS ORDERED: COMBIVENT U/D3 M2 INH (13:23)
[2016-11-27] MEDS ORDERED: OS-CAL 500500 MG PO (13:27)
[2016-11-27] MEDS ORDERED: METOPROLOL TAR25 MG PO (13:27)
[2016-11-27] MEDS ORDERED: FOSAMAX70 MG PO (13:28)
[2016-11-27] MEDS ORDERED: ARAVA10 MG PO (13:28)
[2016-11-27] MEDS ORDERED: OMEGA 3 1,0001 EACH PO (13:29)
[2016-11-27] MEDS ORDERED: AZULFIDINE PO ×2 (13:35)
[2016-11-27] MEDS ORDERED: DESYREL50 MG PO (13:36)
[2016-11-27] MEDS ORDERED: ACETYLCYST100 MG/1 M INH (13:47)
[2016-11-28 04:27] LABS: ARTERIAL BLD GAS O2 SATURATION 93.4 % (90.0-100.0); ARTERIAL BLOOD GAS CARBOXY HB 0.5 %sat (0.0-9.0); ARTERIAL BLOOD GAS HCO3 23.3 mmol/L; ARTERIAL BLOOD GAS MET HB 0.9 %sat (0.0-2.0); ARTERIAL BLOOD GAS PCO2 35.5 mmHg (35.0-45.0); ARTERIAL BLOOD GAS pH 7.425 (7.350-7.450)
[2016-11-28 04:33] LABS: ARTERIAL BLOOD GAS ALLEN TEST NORMAL; ARTERIAL BLOOD GAS ART SITE LEFT RADIAL; ARTERIAL BLOOD GAS DELIVERY VENT; ARTERIAL BLOOD GAS PO2 72.1 mmHg (80.0-100); ARTERIAL BLOOD GAS VENT MODE AC; ARTERIAL DRAW? YES
[2016-11-28 05:51] LABS: BASOPHIL% 0.4 % (0-2.5); HEMATOCRIT 33.1 % (35.0-45.0); HEMOGLOBIN 10.7 gm/dL (12.0-16.0); LYMPHOCYTE# 0.7 X10e3 (1.0-3.5); LYMPHOCYTE% 9.1 % (17.0-45.0); MEAN CORPUSCULAR HEMOGLOBIN 28.9 PG (28-34); MEAN CORPUSCULAR HGB CONC 32.4 g/dL (30-36); MEAN PLATELET VOLUME 8.8 FL (6.5-11.5); MONOCYTE# 0.5 X10e3 (0-1.0); MONOCYTE% 6.3 % (3.0-12.0); NEUTROPHIL# 6.2 X10e3 (1.5-7.1); NEUTROPHIL% 84.2 % (40-75); PLATELET COUNT 140 X10e3 (140-420); RED BLOOD COUNT 3.71 X10e (3.90-5.30); RED CELL DISTRIBUTION WIDTH 17.4 % (11.0-15.5); WHITE BLOOD COUNT 7.4 X10e3 (4.0-10.5)
[2016-11-28 05:56] LABS: DIFF IND NO
[2016-11-28 10:12] LABS: ALBUMIN SERUM 2.6 g/dL (3.5-5.0); BILIRUBIN,TOTAL 0.5 mg/dL (0.2-2.0); CALCIUM SERUM 8.2 mg/dL (8.4-10.2); CREATININE SERUM 0.6 mg/dL (0.6-1.4); GLOM FILT RATE Estimated 94.3 mL/min (>60); POTASSIUM 3.8 mmol/L (3.5-5.1); PROTEIN TOTAL SERUM 4.5 g/dL (6.0-8.3)
[2016-11-29 03:45] LABS: ARTERIAL BLD GAS O2 SATURATION 93.1 % (90.0-100.0); ARTERIAL BLOOD GAS CARBOXY HB 0.6 %sat (0.0-9.0); ARTERIAL BLOOD GAS HCO3 24.8 mmol/L; ARTERIAL BLOOD GAS MET HB 1.3 %sat (0.0-2.0); ARTERIAL BLOOD GAS PCO2 35.6 mmHg (35.0-45.0); ARTERIAL BLOOD GAS pH 7.451 (7.350-7.450)
[2016-11-29 03:49] LABS: ARTERIAL BLOOD GAS ALLEN TEST NORMAL; ARTERIAL BLOOD GAS ART SITE RIGHT RADIAL; ARTERIAL BLOOD GAS DELIVERY VENT; ARTERIAL BLOOD GAS PO2 72.1 mmHg (80.0-100); ARTERIAL BLOOD GAS VENT MODE A/C; ARTERIAL DRAW? YES
[2016-11-29 05:38] LABS: BASOPHIL% 0.6 % (0-2.5); EOSINOPHIL% 0.2 % (0.0-7.0); HEMATOCRIT 33.9 % (35.0-45.0); HEMOGLOBIN 11.1 gm/dL (12.0-16.0); LYMPHOCYTE# 0.6 X10e3 (1.0-3.5); LYMPHOCYTE% 7.4 % (17.0-45.0); MEAN CELL VOLUME 88.1 FL (83-96); MEAN CORPUSCULAR HEMOGLOBIN 28.9 PG (28-34); MEAN CORPUSCULAR HGB CONC 32.8 g/dL (30-36); MEAN PLATELET VOLUME 9.5 FL (6.5-11.5); MONOCYTE# 0.6 X10e3 (0-1.0); MONOCYTE% 7.1 % (3.0-12.0); NEUTROPHIL# 6.6 X10e3 (1.5-7.1); NEUTROPHIL% 84.7 % (40-75); PLATELET COUNT 177 X10e3 (140-420); RED BLOOD COUNT 3.84 X10e (3.90-5.30); RED CELL DISTRIBUTION WIDTH 17.7 % (11.0-15.5); WHITE BLOOD COUNT 7.8 X10e3 (4.0-10.5)
[2016-11-29 05:42] LABS: DIFF IND NO
[2016-11-29 10:44] LABS: BUN/CREATININE RATIO 28.33; CALCIUM SERUM 8.2 mg/dL (8.4-10.2); CREATININE SERUM 0.6 mg/dL (0.6-1.4); GLOM FILT RATE Estimated 94.3 mL/min (>60); MAGNESIUM 2.3 mg/dL (1.6-3.0); PHOSPHOROUS 1.9 mg/dL (2.5-4.6); POTASSIUM 4.8 mmol/L (3.5-5.1)
[2016-11-30 04:45] LABS: ARTERIAL BLD GAS O2 SATURATION 92.3 % (90.0-100.0); ARTERIAL BLOOD GAS CARBOXY HB 0.3 %sat (0.0-9.0); ARTERIAL BLOOD GAS HCO3 29.2 mmol/L; ARTERIAL BLOOD GAS MET HB 1.5 %sat (0.0-2.0); ARTERIAL BLOOD GAS PCO2 40.4 mmHg (35.0-45.0); ARTERIAL BLOOD GAS pH 7.467 (7.350-7.450)
[2016-11-30 04:52] LABS: ARTERIAL BLOOD GAS PO2 69.8 mmHg (80.0-100)
[2016-11-30 04:53] LABS: ARTERIAL BLOOD GAS ALLEN TEST NORMAL; ARTERIAL BLOOD GAS ART SITE RIGHT RADIAL; ARTERIAL BLOOD GAS DELIVERY VENT; ARTERIAL BLOOD GAS VENT MODE A/C; ARTERIAL DRAW? YES
[2016-11-30 05:27] LABS: BASOPHIL% 0.2 % (0-2.5); HEMATOCRIT 36.8 % (35.0-45.0); HEMOGLOBIN 11.7 gm/dL (12.0-16.0); LYMPHOCYTE% 13.3 % (17.0-45.0); MEAN CORPUSCULAR HEMOGLOBIN 26.9 PG (28-34); MEAN CORPUSCULAR HGB CONC 31.9 g/dL (30-36); MEAN PLATELET VOLUME 8.2 FL (6.5-11.5); MONOCYTE# 0.6 X10e3 (0-1.0); MONOCYTE% 8.5 % (3.0-12.0); NEUTROPHIL# 5.6 X10e3 (1.5-7.1); PLATELET COUNT 211 X10e3 (140-420); RED BLOOD COUNT 4.36 X10e (3.90-5.30); RED CELL DISTRIBUTION WIDTH 16.4 % (11.0-15.5); WHITE BLOOD COUNT 7.1 X10e3 (4.0-10.5)
[2016-11-30 05:49] LABS: MEAN CELL VOLUME 84.4 FL (83-96)
[2016-11-30 05:50] LABS: DIFF IND NO
[2016-11-30 06:21] LABS: CALCIUM SERUM 7.9 mg/dL (8.4-10.2); CREATININE SERUM 0.6 mg/dL (0.6-1.4); GLOM FILT RATE Estimated 94.3 mL/min (>60); POTASSIUM 4.3 mmol/L (3.5-5.1)
[2016-12-01 04:01] LABS: ARTERIAL BLD GAS O2 SATURATION 93.2 % (90.0-100.0); ARTERIAL BLOOD GAS CARBOXY HB 0.4 %sat (0.0-9.0); ARTERIAL BLOOD GAS HCO3 31.6 mmol/L; ARTERIAL BLOOD GAS MET HB 1.1 %sat (0.0-2.0); ARTERIAL BLOOD GAS PCO2 44.4 mmHg (35.0-45.0)
[2016-12-01 04:15] LABS: ARTERIAL BLOOD GAS ALLEN TEST NORMAL; ARTERIAL BLOOD GAS ART SITE RIGHT RADIAL; ARTERIAL BLOOD GAS DELIVERY VENT; ARTERIAL BLOOD GAS PO2 74.7 mmHg (80.0-100); ARTERIAL BLOOD GAS VENT MODE A/C; ARTERIAL DRAW? YES
[2016-12-01 06:13] LABS: BUN/CREATININE RATIO 41.66; CALCIUM SERUM 7.7 mg/dL (8.4-10.2); CREATININE SERUM 0.6 mg/dL (0.6-1.4); GLOM FILT RATE Estimated 94.3 mL/min (>60); MAGNESIUM 2.7 mg/dL (1.6-3.0); POTASSIUM 4.7 mmol/L (3.5-5.1)
[2016-12-01 10:40] LABS: ARTERIAL BLD GAS O2 SATURATION 86.8 % (90.0-100.0); ARTERIAL BLOOD GAS CARBOXY HB 0.3 %sat (0.0-9.0); ARTERIAL BLOOD GAS HCO3 30.7 mmol/L; ARTERIAL BLOOD GAS PCO2 39.9 mmHg (35.0-45.0); ARTERIAL BLOOD GAS pH 7.494 (7.350-7.450)
[2016-12-01 10:42] LABS: ARTERIAL BLOOD GAS ALLEN TEST NORMAL; ARTERIAL BLOOD GAS ART SITE LEFT RADIAL; ARTERIAL BLOOD GAS PO2 49.7 mmHg (80.0-100); ARTERIAL BLOOD GAS VENT MODE CPAP; ARTERIAL DRAW? YES
[2016-12-02 04:34] LABS: BASOPHIL% 0.2 % (0-2.5); DIFF IND NO; EOSINOPHIL% 0.1 % (0.0-7.0); HEMATOCRIT 38.5 % (35.0-45.0); LYMPHOCYTE# 1.1 X10e3 (1.0-3.5); LYMPHOCYTE% 10.1 % (17.0-45.0); MEAN CELL VOLUME 85.5 FL (83-96); MEAN CORPUSCULAR HEMOGLOBIN 26.7 PG (28-34); MEAN CORPUSCULAR HGB CONC 31.3 g/dL (30-36); MEAN PLATELET VOLUME 8.1 FL (6.5-11.5); MONOCYTE# 0.8 X10e3 (0-1.0); MONOCYTE% 7.3 % (3.0-12.0); NEUTROPHIL# 9.2 X10e3 (1.5-7.1); NEUTROPHIL% 82.3 % (40-75); PLATELET COUNT 206 X10e3 (140-420); RED BLOOD COUNT 4.51 X10e (3.90-5.30); RED CELL DISTRIBUTION WIDTH 16.3 % (11.0-15.5); WHITE BLOOD COUNT 11.2 X10e3 (4.0-10.5)
[2016-12-02 04:35] LABS: ARTERIAL BLD GAS O2 SATURATION 93.2 % (90.0-100.0); ARTERIAL BLOOD GAS CARBOXY HB 0.9 %sat (0.0-9.0); ARTERIAL BLOOD GAS MET HB 0.8 %sat (0.0-2.0); ARTERIAL BLOOD GAS PCO2 44.9 mmHg (35.0-45.0); ARTERIAL BLOOD GAS pH 7.448 (7.350-7.450)
[2016-12-02 04:36] LABS: ARTERIAL BLOOD GAS ART SITE LEFT BRACHIAL; ARTERIAL BLOOD GAS DELIVERY VENT; ARTERIAL BLOOD GAS PO2 72.1 mmHg (80.0-100); ARTERIAL BLOOD GAS VENT MODE AC; ARTERIAL DRAW? YES
[2016-12-02 04:45] LABS: BUN/CREATININE RATIO 48.33; CALCIUM SERUM 8.1 mg/dL (8.4-10.2); CREATININE SERUM 0.6 mg/dL (0.6-1.4); GLOM FILT RATE Estimated 94.3 mL/min (>60); POTASSIUM 4.4 mmol/L (3.5-5.1)
[2016-12-02 10:02] LABS: ARTERIAL BLD GAS O2 SATURATION 92.1 % (90.0-100.0); ARTERIAL BLOOD GAS CARBOXY HB 0.5 %sat (0.0-9.0); ARTERIAL BLOOD GAS HCO3 31.3 mmol/L; ARTERIAL BLOOD GAS PCO2 42.4 mmHg (35.0-45.0); ARTERIAL BLOOD GAS PO2 67.4 mmHg (80.0-100); ARTERIAL BLOOD GAS pH 7.477 (7.350-7.450)
[2016-12-02 10:03] LABS: ARTERIAL BLOOD GAS ART SITE RIGHT RADIAL; ARTERIAL BLOOD GAS DELIVERY VENT; ARTERIAL DRAW? YES
[2016-12-02 10:04] LABS: ARTERIAL BLOOD GAS VENT MODE CPAP
[2016-12-02 14:27] LABS: ARTERIAL BLD GAS O2 SATURATION 92.7 % (90.0-100.0); ARTERIAL BLOOD GAS CARBOXY HB 0.5 %sat (0.0-9.0); ARTERIAL BLOOD GAS HCO3 31.8 mmol/L; ARTERIAL BLOOD GAS MET HB 0.9 %sat (0.0-2.0); ARTERIAL BLOOD GAS PCO2 40.7 mmHg (35.0-45.0); ARTERIAL BLOOD GAS pH 7.501 (7.350-7.450)
[2016-12-02 14:28] LABS: ARTERIAL BLOOD GAS ART SITE RIGHT RADIAL; ARTERIAL BLOOD GAS DELIVERY HHF; ARTERIAL BLOOD GAS PO2 68.5 mmHg (80.0-100); ARTERIAL DRAW? YES
[2016-12-03 04:20] LABS: ARTERIAL BLD GAS O2 SATURATION 95.4 % (90.0-100.0); ARTERIAL BLOOD GAS CARBOXY HB 0.3 %sat (0.0-9.0); ARTERIAL BLOOD GAS HCO3 30.2 mmol/L; ARTERIAL BLOOD GAS MET HB 0.9 %sat (0.0-2.0); ARTERIAL BLOOD GAS PCO2 38.8 mmHg (35.0-45.0); ARTERIAL BLOOD GAS PO2 86.1 mmHg (80.0-100); ARTERIAL BLOOD GAS pH 7.499 (7.350-7.450)
[2016-12-03 04:26] LABS: ARTERIAL BLOOD GAS ALLEN TEST NORMAL; ARTERIAL BLOOD GAS ART SITE RIGHT RADIAL; ARTERIAL BLOOD GAS DELIVERY HEATED HIGH-FLOW; ARTERIAL DRAW? YES
[2016-12-03 06:29] LABS: BASOPHIL# 0.1 X10e3 (0-0.3); BASOPHIL% 0.7 % (0-2.5); EOSINOPHIL% 0.1 % (0.0-7.0); LYMPHOCYTE# 1.1 X10e3 (1.0-3.5); LYMPHOCYTE% 12.2 % (17.0-45.0); MEAN CELL VOLUME 84.7 FL (83-96); MEAN CORPUSCULAR HEMOGLOBIN 26.8 PG (28-34); MEAN CORPUSCULAR HGB CONC 31.6 g/dL (30-36); MEAN PLATELET VOLUME 8.3 FL (6.5-11.5); MONOCYTE# 0.9 X10e3 (0-1.0); PLATELET COUNT 229 X10e3 (140-420); RED BLOOD COUNT 4.49 X10e (3.90-5.30); RED CELL DISTRIBUTION WIDTH 16.4 % (11.0-15.5)
[2016-12-03 06:30] LABS: BLOOD UREA NITROGEN 31 mg/dL (9-23); CARBON DIOXIDE 29 mmol/L (22-31); CHLORIDE 105 mmol/L (100-111); CREATININE SERUM 0.5 mg/dL (0.6-1.4); GLOM FILT RATE Estimated 100.2 mL/min (>60); GLUCOSE FASTING 154 mg/dL (70-110); SODIUM 141 mmol/L (135-145)
[2016-12-03 06:32] LABS: DIFF IND YES
[2016-12-03 06:43] LABS: PROCALCITONIN <0.05 NG/ML
[2016-12-03 07:21] LABS: ANISOCYTOSIS MOD; HYPOCHROMIA SL; PLATELET ESTIMATE NORMAL (NORMAL)
[2016-12-03 07:22] LABS: POLYCHROMASIA SL
[2016-12-03 07:23] LABS: POIKILOCYTOSIS SL; SCHISTOCYTES PRESENT
[2016-12-05 05:44] LABS: BASOPHIL% 0.1 % (0-2.5); EOSINOPHIL% 0.2 % (0.0-7.0); HEMATOCRIT 38.6 % (35.0-45.0); HEMOGLOBIN 12.1 gm/dL (12.0-16.0); LYMPHOCYTE# 1.1 X10e3 (1.0-3.5); LYMPHOCYTE% 13.2 % (17.0-45.0); MEAN CELL VOLUME 85.6 FL (83-96); MEAN CORPUSCULAR HEMOGLOBIN 26.8 PG (28-34); MEAN CORPUSCULAR HGB CONC 31.3 g/dL (30-36); MEAN PLATELET VOLUME 8.4 FL (6.5-11.5); MONOCYTE# 0.8 X10e3 (0-1.0); MONOCYTE% 9.1 % (3.0-12.0); NEUTROPHIL# 6.6 X10e3 (1.5-7.1); NEUTROPHIL% 77.4 % (40-75); PLATELET COUNT 211 X10e3 (140-420); RED CELL DISTRIBUTION WIDTH 16.8 % (11.0-15.5); WHITE BLOOD COUNT 8.5 X10e3 (4.0-10.5)
[2016-12-05 05:55] LABS: DIFF IND NO
[2016-12-05 06:49] LABS: BUN/CREATININE RATIO 72.5; CALCIUM SERUM 8.5 mg/dL (8.4-10.2); CREATININE SERUM 0.4 mg/dL (0.6-1.4); GLOM FILT RATE Estimated 107.8 mL/min (>60); POTASSIUM 4.1 mmol/L (3.5-5.1)
[2016-12-07 05:58] LABS: HEMATOCRIT 39.9 % (35.0-45.0); HEMOGLOBIN 12.6 gm/dL (12.0-16.0); MEAN CELL VOLUME 85.2 FL (83-96); MEAN CORPUSCULAR HEMOGLOBIN 26.9 PG (28-34); MEAN CORPUSCULAR HGB CONC 31.6 g/dL (30-36); MEAN PLATELET VOLUME 8.4 FL (6.5-11.5); RED BLOOD COUNT 4.69 X10e (3.90-5.30); RED CELL DISTRIBUTION WIDTH 16.1 % (11.0-15.5)
[2016-12-07 06:59] LABS: CALCIUM SERUM 8.8 mg/dL (8.4-10.2); CREATININE SERUM 0.4 mg/dL (0.6-1.4); GLOM FILT RATE Estimated 107.8 mL/min (>60); POTASSIUM 4.1 mmol/L (3.5-5.1)
[2016-12-09 06:14] LABS: HEMATOCRIT 37.3 % (35.0-45.0); MEAN CELL VOLUME 84.9 FL (83-96); MEAN CORPUSCULAR HEMOGLOBIN 27.3 PG (28-34); MEAN CORPUSCULAR HGB CONC 32.2 g/dL (30-36); MEAN PLATELET VOLUME 8.5 FL (6.5-11.5); RED BLOOD COUNT 4.39 X10e (3.90-5.30); RED CELL DISTRIBUTION WIDTH 16.7 % (11.0-15.5); WHITE BLOOD COUNT 8.2 X10e3 (4.0-10.5)
[2016-12-09 06:55] LABS: BUN/CREATININE RATIO 37.5; CALCIUM SERUM 8.4 mg/dL (8.4-10.2); CREATININE SERUM 0.4 mg/dL (0.6-1.4); GLOM FILT RATE Estimated 107.8 mL/min (>60); MAGNESIUM 1.8 mg/dL (1.6-3.0); POTASSIUM 3.5 mmol/L (3.5-5.1)
== END 2016-12-10 15:21 | DRG 207 ==
LOC: CED 19:44 → CEDOF 22:00 → CICCU2 11-27 09:07 → C3A PCU 12-05 15:36
PROVIDERS: Emergency Medicine; Family Medicine; Internal Medicine
PROC: 02HV33Z Insertion of Infusion Device into Superior Vena Cava, Percutaneous Approach (ICD-10-PCS; principal; 2016-11-27)
PROC: 5A1955Z Respiratory Ventilation, Greater than 96 Consecutive Hours (ICD-10-PCS; 2016-11-27)
PROC: B548ZZA Ultrasonography of Superior Vena Cava, Guidance (ICD-10-PCS; 2016-11-27)
PROC: 0BH17EZ Insertion of Endotracheal Airway into Trachea, Via Natural or Artificial Opening (ICD-10-PCS; 2016-11-27)
DX: J96.21 Acute and chronic respiratory failure with hypoxia (principal); E43 Unspecified severe protein-calorie malnutrition; J18.9 Pneumonia, unspecified organism; J44.0 Chronic obstructive pulmonary disease with (acute) lower respiratory infection; J44.1 Chronic obstructive pulmonary disease with (acute) exacerbation; J96.22 Acute and chronic respiratory failure with hypercapnia; M62.3 Immobility syndrome (paraplegic); D64.9 Anemia, unspecified; E78.5 Hyperlipidemia, unspecified; M06.9 Rheumatoid arthritis, unspecified; F51.04 Psychophysiologic insomnia; K21.9 Gastro-esophageal reflux disease without esophagitis; Z86.711 Personal history of pulmonary embolism; I10 Essential (primary) hypertension; M19.90 Unspecified osteoarthritis, unspecified site; E87.6 Hypokalemia; Y95 Nosocomial condition; Z87.891 Personal history of nicotine dependence; G47.33 Obstructive sleep apnea (adult) (pediatric); E66.01 Morbid (severe) obesity due to excess calories; Z68.35 Body mass index [BMI] 35.0-35.9, adult
CPT/HCPCS: 36415; 36600; 70450; 71010; 71020; 71275; 74000; 80048; 80053; 80076; 80202; 82308; 82330; 82550; 82803; 82947; 83605; 83735; 83880; 84100; 84478; 84484; 85025; 85027; 85610; 85730; 87040; 87070; 87205; 87493; 92526; 92610; 93005; 94002; 94003; 94640; 94660; 94664; 94760; 94761; 96374; 97110; 97116; 97161; 97166; 97168; 97530; 97535; 99285; G0238; G8978-GP; G8979-GP; G8980-GP; G8987-GO; G8988-GO; G8996-GN; G8997-GN; G8998-GN; J0456; J0692; J0696; J1650; J1815; J2250; J2920; J2930; J3010; J3370; Q9967

== ENCOUNTER → 2017-02-10 | Outpatient (CLI) | payer MEDICARE ==
[~2017-02-10] MED LIST changes: +ACETYLCYST100 MG/1 M INH; +ARAVA10 MG PO; +AZULFIDINE PO; +COMBIVENT U/D3 M2 INH; +DESYREL50 MG PO; +FOSAMAX70 MG PO; +K-DUR20 ME1 PO; +LIPITOR40 MG PO; +METOPROLOL TAR25 MG PO; +OMEGA 3 1,0001 EACH PO; +OS-CAL 500500 MG PO; +PLAQUENIL200 MG PO; +SYMBICORT80 INH
--- NOTE | ~2017-02-10 | CT57 ---
[facility] A Service [facility] RADIOLOGY TEXT RESULTS PATIENT: VALENTIN KASPER LOCATION: [facility] : [birth year] UNIT #: [id number] AGE: [address]: SAIRA ROJAS APRN SEX: F ORDER DR: [id number] [facility] [address] [place], [place] [address] [id number] O MR#: [id number] Acc #: [id number] NAME: VALENTIN KASPER. : 1950 SEX: F STUDY DATE/TIME: 02/10/2017 16:34 UNIT: [facility] ROOM: STUDY DESCRIPTION: CT Chest Wo Cont Attending Physician: Saira Rojas Aprn Referring Physician: Saira Rojas Aprn Ordering Physician: Physician Non-Staff Primary Care Physician: Flip Patel M.D. MEDICAL IMAGING REPORT This report is preliminary unless electronic signature is present EXAM CT of the chest without contrast. INDICATIONS Follow up pneumonia. COPD and shortness of breath. TECHNIQUE CT scan of the chest was performed without contrast. Coronal and sagittal reformatted images were obtained. This CT exam was performed with one or more of the following radiation dose reduction techniques: Automatic exposure control, adjustment of mA and/or kV according to patient size, and iterative reconstruction. COMPARISON 11/27/2016. FINDINGS Emphysema. Stable large calcified fibrotic mass in the right upper lobe. The previously identified consolidation within the posterior right upper lobe has resolved. There is no new infiltrate. No suspicious lymphadenopathy. No pleural effusion. Coronary artery calcification. Limited imaging of the upper abdomen is unremarkable. The bone windows demonstrate degenerative changes of the lower thoracic and upper lumbar spine. IMPRESSION 1. The previously noted consolidation in the posterior right upper lobe has resolved. 2. Stable emphysema and large calcific and fibrotic mass within the right upper lobe. 3. No new infiltrates Dictated by... [facility] A Service [facility] RADIOLOGY TEXT RESULTS PATIENT: VALENTIN KASPER LOCATION: [facility] : 48 UNIT #: [id number] AGE: [address]: SAIRA ROJAS, DIGITAL STRATEGIST SENIOR MANAGER SEX: F ORDER DR: Harley Javed M.D. THIS IS AN ELECTRONICALLY VERIFIED REPORT Harley Javed M.D. at 02/12/2017 7:23 PM ARS/kirti TD: 02/11/2017 09:17 JOB #: [id number] MEDICAL IMAGING REPORT Page 1 of 1 COPY
== END | disposition home or self-care (01) ==
LOC: CCAT 16:08
DX: J18.9 Pneumonia, unspecified organism (principal); J43.9 Emphysema, unspecified
CPT/HCPCS: 71250